=== PATIENT | male | born 1975 | race Caucasian/White ===

== ENCOUNTER → 2017-09-26 | Outpatient (CLI) | payer BC ==
--- NOTE | 2017-09-26 17:32 | PN ---
PROGRESS NOTE Jordan is coming in for a followup regarding obstructive sleep apnea. His last evaluation was in September of 2014. At that time, the patient was known to have severe obstructive sleep apnea and an AHI of 46, and the patient was receiving CPAP therapy at a pressure of 9 cm of water. He quit the treatment for a while and he became symptomatic and he restarted treatment. He is having trouble getting all the supplies and he wants to switch from [employer] to an alternative [employer] company as the patient has not been consistent receiving all supplies. He is using a Cabrera FX. He is also interested in upgrading his CPAP machine knowing that he has been using the same machine for the past 5 years and he is not seeing the same benefit and he is having some increased daytime somnolence and sleepiness and it is very much likely the pressure needs to be adjusted upgraded. PHYSICAL EXAMINATION: BP is 150/86, pulse 90 respirations 16, BMI 41.2 weight is 321 and height is 6 feet 2 inches. General appearance calm and comfortable. Head is atraumatic, normocephalic. Neck is supple. No JVD. No goiter or neck masses. Mallampati class 4. Lungs clear to auscultation. Heart sounds regular rate and rhythm. Normal S1, S2. No S3, S4. No murmurs. Abdomen is soft, nontender. No organomegaly. EXTREMITIES: No edema. No cyanosis or clubbing. Neuro alert and oriented times three. There is no focal neurological deficits. Psych is negative for anxiety or depression. IMPRESSION: 1. Severe symptomatic obstructive sleep apnea with an AHI of more than 40. The patient is compliant with CPAP therapy. Averaging around 7 hours and 30 minutes of CPAP use every night and his CPAP use for more than 4 hours is above 90%. Never the less, he is still feeling hypersomnia and sleepy and he may need another titration and his machine needs to be upgraded. 2. Obesity. 3. Hypertension. PLAN: 1. Set up this patient for another CPAP titration. 2. Refill his Cabrera FX mask medium size to [employer]. 3. Encourage weight loss. 4. We will update the patient's machine and pressure following the CPAP titration. MMODL / IJN: [id number] /
== END ==
LOC: SLEEP 15:43
PROVIDERS: ATTEND Internal Medicine Critical Care Medicine
DX: Z51.89 Encounter for other specified aftercare (principal); G47.33 Obstructive sleep apnea (adult) (pediatric)

== ENCOUNTER → 2018-01-15 | Outpatient (CLI) | payer BC ==
--- NOTE | 2018-01-15 16:46 | PN ---
PROGRESS NOTE This is a 42-year-old male patient coming to the sleep center for a compliancy followup and check. The patient is doing very well while on CPAP treatment. He is benefitting from treatment and he reports much improvement in sleep quality and daytime symptoms of hypersomnia and sleepiness. The patient has been utilizing a CPAP at a pressure of 9 cm of water. The patient is using a Cabrera FX nose pillow. He is averaging about 7.3 hours of CPAP use per night. His leak factor is only 0 L and his AHI while on treatment is down to 1. He is trying to lose weight. His current BMI is 43.1. He does not fall asleep during day-to-day activities and seems to be much more alert and awake. No side effects or any problems with the CPAP machine. No problems with the mask interface. The treatment has been extremely successful for now. PHYSICAL EXAMINATION: BP is 127/76, pulse 86, respirations 16, temperature 98.7 saturation is 96% on room air. Weight is 336.4. GENERAL APPEARANCE: Calm, comfortable, in no acute distress. Head is atraumatic, normocephalic. Neck is supple. There is no JVD. No goiter or neck masses. LUNGS: Clear to auscultation. HEART: Sounds are regular. Normal S1, S2. No S3, S4. No murmurs. ABDOMEN: Soft, nontender. No organomegaly. EXTREMITIES: No edema. No cyanosis or clubbing. NEUROLOGIC: The patient is alert x3. There is no focal neurological deficits. PSYCHIATRIC: Negative for anxiety or depression. IMPRESSION: 1. There is severe symptomatic obstructive sleep apnea with an AHI of 46. Currently the patient undergoing a successful CPAP therapy with CPAP with a pressure of 9 cm of water. 2. Chronic hypersomnia recovered and the patient's Sterling score is down to 8. 3. Obesity with a BMI of 41.2. 4. History of depression. 5. Nocturnal oxygen desaturation recovered with CPAP therapy. PLAN: 1. Encourage weight loss. 2. Proceed with depression treatment through his primary care physician. 3. Continue CPAP therapy at a pressure of 9 cm of water. 4. Keep the patient on an AirFit P10 nose mask/pillows. 5. See me back in a year's time or earlier if needed. Treatment is successful for now. MMODL / IJN: [id number] /
== END | disposition home or self-care (01) ==
LOC: SLEEP 15:40
PROVIDERS: ATTEND Internal Medicine Critical Care Medicine
DX: G47.33 Obstructive sleep apnea (adult) (pediatric) (principal); G47.10 Hypersomnia, unspecified; E66.9 Obesity, unspecified; Z68.41 Body mass index [BMI] 40.0-44.9, adult; Z86.59 Personal history of other mental and behavioral disorders; Z99.89 Dependence on other enabling machines and devices